=== PATIENT | female | born 1935 | race Caucasian/White ===

== ENCOUNTER → 2024-01-08 13:54 | Outpatient (REF) | payer OTHER, SELFPAY | LOC: RAD 13:54 | PROVIDERS: ATTENDING PHYSICIAN Internal Medicine; FAMILY PHYSICIAN Internal Medicine | DX: M81.0 Age-related osteoporosis without current pathological fracture (principal) | CPT/HCPCS: 77080 ==

== ENCOUNTER → 2024-02-06 07:53 | Outpatient (REF) | payer OTHER, SELFPAY | LOC: RAD 07:53 | PROVIDERS: ATTENDING PHYSICIAN Nurse Practitioner Family | DX: R11.0 Nausea (principal); R68.81 Early satiety; R63.4 Abnormal weight loss; R14.2 Eructation; K31.4 Gastric diverticulum | CPT/HCPCS: 78264; A9541 ==

== ENCOUNTER → 2024-02-13 09:59 | Outpatient (REF) | payer OTHER, SELFPAY | LOC: RST 09:59 | PROVIDERS: ATTENDING PHYSICIAN Nurse Practitioner Family; FAMILY PHYSICIAN Internal Medicine | DX: R13.10 Dysphagia, unspecified (principal) | CPT/HCPCS: 74230; 92611 ==

== ENCOUNTER 2024-09-29 18:15 | Emergency (ER) | payer OTHER, SELFPAY ==
[2024-09-29 18:19] VITALS: BP 213/116
--- NOTE | 2024-09-29 19:07 | ED.MUSCINJ ---
HPI-Injury
General
Chief Complaint: Fall
Source: patient and family (Daughter at bedside)
Exam Limitations: none
Time Seen by Provider: 09/29/24 18:52
Nursing documentation reviewed up to this point in time: agreed with
History of Present Illness-Injury
Initial Injury comments:
88-year-old female on chronic prednisone for temporal arteritis states she was in her kitchen stepping over a 10 inch high board that is used to keep the puppy in the kitchen when her toe caught on the board and she fell forward striking her right
day on the board causing a skin tear. She had a tetanus shot about 3 years ago. She was able to get up and walk, denies pain in the leg, denies hitting her head or any other injury.
Past History
Past History
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
ED Past Surgical History: Cholecystectomy and Urological
Social History
Tobacco: Non-smoker
Alcohol: None
Living: with family
Employment: Retired
Family History
Family History: Other (Temporal arteritis)
Review of Systems
Review of Systems
Allergies reviewed?: Yes
All Other Systems: ROS reviewed and negative except as documented in HPI and ROS
Respiratory: Denies trouble breathing
Cardiac: Denies chest pain
ABD/GI: Denies abdominal pain
Musculoskeletal: Reports no symptoms
Skin: Reports other (Skin tear/laceration right lower extremity)
Neurological: Reports no symptoms
Skin Exam
Laceration
Right Lower Leg:
Length in cm: 16
Orientation: vertical (inverted 'V' shape)
Type of Laceration: simple
Any active bleeding?: low grade venous oozing
Distal skin color and temperature: normal-warm & good color
Normal distal neurovascular exam: Yes
Range of motion: full
Phy Exam
Physical Exam
Physical Exam:
GENERAL: No acute distress. A&Ox3.
CONSTITUTIONAL: Afebrile.
EYES: Clear, conjunctivae normal
Neck: Supple
ENMT: moist mucus membranes, Pharynx nl
RESPIRATORY: Regular respirations, nonlabored, lungs clear.
CARDIOVASCULAR: Regular rate and rhythm, no murmurs, no rubs.
GI: Soft, nontender, normal BS
MUSCULOSKELETAL: No spinal bony tenderness. Moving all extremities well with no pain. Ambulates steadily. No edema. Moves with ease. Well perfused.
SKIN: Warm, dry, pink
PSYCH: Normal mood and affect. Well kept, interactive and appropriate
NEUROLOGIC: Awake, alert and oriented. No focal neurological deficits
Injury Course
Orders/Labs/Results
Orders:
Orders
09/29/24 19:06
Lidocaine/Epinephrine/Tetracai [Let Topical Anesthetic Gel] 6 ml TOPICAL NOW STA
Procedures
Laceration Closure
Right Lower Leg:
Status of Wound: clean
Description of Wound Edges: sharp
Preparation: cleaned with saline
Anesthesia: Topical-LET
Revision/Debridement: routine- no revision
Wound exploration: explored to base- no FB
Type of Closure: Dermabond-skin glue (reinforced with skin adhesive and steri strips, non stick and gauze dressing then debbi wrap applied)
MDM/Problems Addressed
MDM/Problems Addressed:
88-year-old female on chronic prednisone for temporal arteritis states she was in her kitchen stepping over a 10 inch high board that is used to keep the puppy in the kitchen when her toe caught on the board and she fell forward striking her right
day on the board causing a skin tear. She had a tetanus shot about 3 years ago. She was able to get up and walk, denies pain in the leg, denies hitting her head or any other injury.
Wound edges well approximated with wound glue, skin adhesive and steristrips applied, then dressing.
BP 146/101 pt states she does not have HTN she thinks it due to pain
*Critical Care Note
Total Time (30-74mins, 75-104mins- exclusive of procedures): Not Applicable
ED Attending Note
-
Portions of this chart may have been created with voice recognition software.� Occasional wrong word or��sound alike� substitutions may have occurred due to the inherent limitations of voice recognition software.
Discharge Plan
Departure
Patient Disposition: Home (Routine Discharge)
Date of Disposition: 09/29/24
Time of Disposition: 20:24
Patient with high blood pressure during this ER visit?: Yes
Condition: Good
Discharge Problem:
Fall from slip, trip, or stumble, Laceration of right lower leg
Instructions: Laceration Repair With Glue (DC)
Prescriptions:
No Action
acetaminophen [Tylenol] 325 mg Tablet
650 mg PO Q6HPRN PRN (Reason: HIP PAIN)
meclizine 12.5 mg Tablet
12.5 mg PO TIDPRN PRN (Reason: VERIGO)
meloxicam 7.5 mg Tablet
15 mg PO DAILY
lovastatin 20 mg Tablet
40 mg PO DAILY
vitamin A-vitamin C-vit E-min Tablet
1 tab PO DAILY
vit C-vit E-Se-ginkgo biloba 60-30-70-40 km-vkef-bvy-mg Tablet
1 tab PO DAILY
krill wwa-zxlpl-9-dha-epa 150-450 mg Capsule,Delayed Release(Dr/Ec)
1 cap PO DAILY
prednisone 10 mg tablet
10 mg PO DAILY Qty: 150 1RF
Rx Instructions:
take 50mg (5 tabs) daily
ondansetron 4 mg tablet,disintegrating
4 mg PO Q8H PRN (Reason: nausea and vomiting) Qty: 30 0RF
pantoprazole [Protonix] 40 mg tablet,delayed release (DR/EC)
40 mg PO DAILY Qty: 30 1RF
Referrals:
Your, Doctor [Other] - As needed
UNKNOWN - PT DOES,NOT KNOW [Unknown Provider] -
Activity Restrictions/Additional Instructions:
As we discussed, leave the dressing on until 10/06. REST and do not do any lengthy walking, or activity
Then remove the dressing, everything except the steri strips.
You may shower, allowing water to run over the area. Then pat the strips dry, air dry or blow dry them and replace a dressing to cover them.
Do this for the next week. After 2 weeks you can leave everything off.
Signs of infection are increasing pain, redness, fever, pus drainage, if any of these occur see your doctor or return here immediately for recheck.
Interventions
Interventions:
*Risk Screen - Suicide Last Done: 09/29/24 20:56
*General Assessment Last Done: 09/29/24 20:56
*Neglect/Abuse Screening Last Done: 09/29/24 20:56
*Nursing Disposition Last Done: 09/29/24 20:56
ED-Musculoskeletal Assessment Last Done: 09/29/24 18:49
ED- Neurological Assessment Last Done: 09/29/24 18:49
ED-Skin Assessment Last Done: 09/29/24 18:49
Discharge Date and Time
Discharge Date/Time: 09/29/24 20:58
Print Language: SAMI
[2024-09-29] MEDS: LET TOPICAL ANESTHETIC GEL 6 ML TOPICAL (19:29)
[2024-09-29 20:29] VITALS: BP 146/101
== END 2024-09-29 20:58 | disposition home or self-care (01) ==
LOC: EMR 18:15
PROVIDERS: EMERGENCY PHYSICIAN Emergency Medicine; FAMILY PHYSICIAN Nurse Practitioner Family
DX: S81.811A Laceration without foreign body, right lower leg, initial encounter (principal); W01.198A Fall on same level from slipping, tripping and stumbling with subsequent striking against other object, initial encounter; R03.0 Elevated blood-pressure reading, without diagnosis of hypertension
CPT/HCPCS: 99282; 12005

== ENCOUNTER 2024-12-20 13:57 | Inpatient (IN) | payer OTHER, SELFPAY ==
[2024-12-20] VITALS (12 sets, daily range): BP systolic 94–160; BP diastolic 43–84; BMI 19.7; BMI 18.9
[2024-12-20] MEDS: ZOFRAN 4 MG IV ×2 (08:08→14:44)
[2024-12-20] MEDS: NSS 1000 IV (08:08)
--- NOTE | 2024-12-20 08:18 | ED.GENMED ---
History of Present Illness
General
Chief Complaint: Abdominal Pain
Source: patient
Exam Limitations: none
Time Seen by Provider: 12/20/24 07:35
Nursing documentation reviewed up to this point in time: agreed with
History of Present Illness
History of Present Illness:
Patient presents to ED secondary to 1 week history of intermittent cough, shortness of breath, decreased appetite, along with intermittent vomiting episodes when she tries to eat. Denies diarrhea. Denies headache. Denies dizziness. Patient
reports generalized weakness. Denies rash. Denies sore throat. Denies back pain. Denies leg pain or swelling. Denies sick contact. Denies recent travel.
Past History
Past History
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
ED Past Surgical History: Cholecystectomy and Urological
Social History
Tobacco: Non-smoker
Alcohol: None
Living: with family
Employment: Retired
Family History
Family History: Other (Temporal arteritis)
Review of Systems
Review of Systems
Allergies reviewed?: Yes
All Other Systems: ROS reviewed and negative except as documented in HPI and ROS
Constitutional: Reports no symptoms
EENT: Reports no symptoms
Respiratory: Reports no symptoms
Cardiac: Reports no symptoms
ABD/GI: Reports no symptoms
Musculoskeletal: Reports no symptoms
Skin: Reports no symptoms
Neurological: Reports no symptoms
Phy Exam
Physical Exam
Physical Exam:
Physical Exam
General: moderate distress, acutely ill. afebrile.
Head: nc/at. eomi
Neck: supple. no meningeal signs.
Heart: s1/s2 regular rate and rhythm, no murmur. equal radial pulses.
Lungs: mild respiratory distress. diminished breath sounds bilaterally
Abdomen: normal bowel sounds. not tender.
Neuro: alert and oriented x 3. no focal neurological deficits
Skin: no rash
Psychiatric: well kept. interactive and cooperative
Extremities: no edema. no calf tenderness.
Course
Orders/Labs/Results
Orders:
Orders
12/20/24 Breakfast
Clear Liquid
At Your Request: Full Participation
12/20/24 07:52
Electrocardiogram (*1) Urgent
Reason for Study: Fatigue / Weakness
EKG- Treatment ONCE
0.9% Sodium Chloride 1000 ml [Nss] 1,000 ml IV BOLUS
Ondansetron Injectable [Zofran] 4 mg IV NOW STA
12/20/24 08:03
COVID-19 Antigen Urgent
Source: Nasal Swab
Complete Blood Count/With Diff Urgent
Comprehensive Metabolic Panel Urgent
Lactic Acid Q4H
Comment: CANCEL 2nd LACTIC ACID IF 1st LACTIC ACID IS LESS THAN 2
Magnesium Urgent
Blood Culture Q30M
ROGERS Source: Blood/Venous
Specimen Description:
Influenza A+B Rapid Molecular Urgent
ROGERS Source: Nasal Swab
Specimen Description:
Respiratory Syncytial Virus Urgent
ROGERS Source: Nasal Swab
Specimen Description:
Date Specimen was Collected: 12/20/24
Time Specimen was Collected: 07:54
12/20/24 08:37
Arterial Blood Gas Urgent
%Oxygen/Room Air: 88%
12/20/24 09:21
CR Chest - 2 Views Urgent
Comment:
Reason For Exam: cough/sob, influenza positive
12/20/24 09:47
Guaifenesin/Codeine Solution [Robitussin AC] 10 ml PO NOW STA
Pantoprazole [Protonix IV] 40 mg IV NOW STA
12/20/24 09:48
Albuterol Nebs [Ventolin Nebules] 2.5 mg INH R NOW STA
12/20/24 09:50
Blood Culture Q30M
ROGERS Source: Blood/Venous
Specimen Description:
12/20/24 13:17
Benzocaine/Menthol [Anesthetic Lozenge] 1 lozenge PO Q4HPRN PRN
12/20/24 13:36
Admit/Transfer Patient As Directed
Co-Sign Provider:
Level of Care: Inpatient admission
Assign to:: Telemetry
Physician / Group: Ese Marquez
Diagnosis: Flu Hypoxia
Reason for Telemetry: Chest Pain syndromes
Date to Stop Telemetry: 12/22/24
Time to Stop Telemetry: 11:00
Reason for Hospitalization: Flu Hypoxia
Expected length of stay greater than two midnights?: Yes
ELOS- Estimated Length of Stay in days: 2
I certify the patient meets the requirements for IP care: Yes
12/20/24 13:37
PRN Pain Medication Management As Directed
May give lesser potent ordered pain med per pt: Yes
preference::
Protocol:: Medication orders for pain may be administered in a
manner that supports deferring to patient preference
when the pt is:
- Requesting an ordered lesser potent pain medication.
Least to most potent pain medications are defined
as: acetaminophen < NSAID < tramadol < opioids
(morphine, oxycodone, hydromorphone).
- Requesting a lesser dose of the same medication IF
ORDERED.
- Requesting a less intrusive route of administration
if both routes are prescribed by the provider (PO <
IV).
12/20/24 13:40
Code Status As Directed
Resuscitation Status: Full Code
12/20/24 14:26
Acetaminophen [Tylenol] 650 mg PO Q4HPRN PRN
Ondansetron Injectable [Zofran] 4 mg IV Q6HPRN PRN
12/20/24 14:29
Troponin I Routine
12/20/24 15:42
Lactated Ringers [Lr] 1,000 ml IV 80 mls/hr
12/20/24 16:05
Bisacodyl [Dulcolax] 10 mg RECTAL [id number] PRN
Docusate W/Senna [Senokot-S] 1 tablet PO BIDPRN PRN
Guaifenesin Solution [Robitussin] 200 mg PO Q4HPRN PRN
Meclizine [Antivert] 12.5 mg PO TIDPRN PRN
Polyethylene Glycol Powder [Miralax] 17 grams PO DAILYPRN PRN
12/20/24 16:05
Activity As Directed
Activity Level: With Assistance
Precautions As Directed
Type of Precautions: Other
Comment: fall precautions
Vital Signs As Directed
Frequency: Per unit guidelines
O2 Therapy [RESP] Routine
Titrate/Wean O2 to maintain O2 sat greater than (%): 92
Ot Eval And Treat Routine
Pt Eval And Treat Routine
Activity Level: With Assistance
DX Deep Vein Thrombosis Video Routine
12/20/24 18:00
Atorvastatin [Lipitor] 10 mg PO QPM
Enoxaparin Sodium [Lovenox] 40 mg SC QPM
Nystatin Suspension [Mycostatin Oral Suspension] 5 ml PO QID
12/20/24 20:00
Guaifenesin [Mucinex] 600 mg PO Q12
12/21/24 06:00
EKG [Electrocardiogram (*1)] IN AM
Reason for Study: Abnormal EKG
Basic Metabolic Panel IN AM
Complete Blood Count/No Diff IN AM
Magnesium IN AM
12/21/24 08:00
Multivitamin [Theragran] 1 tablet PO DAILY
Pantoprazole [Protonix] 40 mg PO DAILY
Prednisone [Deltasone] 7 mg PO DAILY
12/22/24 06:00
Basic Metabolic Panel IN AM
Complete Blood Count/No Diff IN AM
Magnesium IN AM
12/22/24 11:00
DC Protocol for Telemetry ONCE
12/23/24 06:00
Basic Metabolic Panel IN AM
Complete Blood Count/No Diff IN AM
Magnesium IN AM
12/24/24 06:00
Basic Metabolic Panel IN AM
Complete Blood Count/No Diff IN AM
Magnesium IN AM
12/25/24 06:00
Basic Metabolic Panel IN AM
Complete Blood Count/No Diff IN AM
Magnesium IN AM
12/26/24 06:00
Basic Metabolic Panel IN AM
Complete Blood Count/No Diff IN AM
Magnesium IN AM
12/27/24 06:00
Basic Metabolic Panel IN AM
Complete Blood Count/No Diff IN AM
Magnesium IN AM
Abnormal Lab Results
12/20/24 12/20/24
08:03 08:37
MCHC 32.5 L g/dL
(33.0-37.0)
RDW 15.0 H %
(11.5-14.5)
Absolute Lymphs (auto) 0.8 L 10^3/uL
(1.2-3.4)
Lymphocytes % 15.0 L %
(20.5-51.1)
Monocytes % 10.3 H %
(1.7-9.3)
pCO2 37 H mmHg
(32-35)
pO2 65 L mmHg
(83-108)
BUN 26 H mg/dl
(7-17)
Glucose 101 H mg/dl
(70-99)
Calcium 7.9 L mg/dl
(8.4-10.2)
AST 50 H U/L
(14-36)
ALT 50 H U/L
(0-35)
Total Protein 5.8 L g/dl
(6.3-8.2)
12/20/24 08:03
12/20/24 08:03
Vital Signs
Initial and Last Documented VS:
Initial Vital Signs
Temp Pulse Resp BP Pulse Ox
98.2 F 70 24 140/70 90
12/20/24 06:34 12/20/24 06:34 12/20/24 06:34 12/20/24 06:34 12/20/24 06:34
Last Documented Vital Signs
Temp Pulse Resp BP Pulse Ox
98.7 F 78 20 160/66 92
12/20/24 19:00 12/20/24 19:00 12/20/24 19:00 12/20/24 19:00 12/20/24 23:33
MDM/Problems Addressed
MDM/Problems Addressed:
History and exam consistent with symptoms secondary to influenza. Mild hypoxia improved with supplemental oxygen. Chest x-ray without any acute findings. Patient also with clinical dehydration, likely due to poor oral intake. Patient will
require symptomatic treatment, along with continual oxygen support.
*EKG
Interpreted by ED Provider?: Yes
EKG Intrepretation Date: 12/20/24
Heart Rate: 82
Rate: normal
Rhythm: sinus
[place]: normal axis
Interval: normal interval
*Critical Care Note
Total Time (30-74mins, 75-104mins- exclusive of procedures): Not Applicable
ED Attending Note
-
Portions of this chart may have been created with voice recognition software.� Occasional wrong word or��sound alike� substitutions may have occurred due to the inherent limitations of voice recognition software.
Discharge Plan
Departure
Patient Disposition: Admit
Date of Disposition: 12/20/24
Time of Disposition: 09:53
Admit to: Telemetry
Presentation/result/management discussed w/ accepting MD/DO: Hospitalist
Discharge Problem:
Influenza, Hypoxia, Dehydration
Interventions
Interventions:
*Risk Screen - Suicide Last Done: 12/20/24 17:35
*General Assessment Last Done: 12/20/24 08:16
*Neglect/Abuse Screening Last Done: 12/20/24 06:41
*ED COVID-19 Vaccine History Last Done: 12/20/24 17:35
*Nursing Disposition Last Done: 12/20/24 16:32
LB-Dbkdmr-Vgyeclektb Assessment Last Done: 12/20/24 08:21
Discharge Date and Time
Discharge Date/Time: 12/20/24 16:42
[2024-12-20 08:35] LABS: % Basophils 0.2 % (0-2); % Immature Granulocytes 0.2 % (0-0.5); % Monocytes 10.3 % (1.7-9.3); % Neutrophils 74.3 % (42.2-75.2); Absolute Lymphocytes 0.8 10^3/uL (1.2-3.4); Absolute Monocytes 0.5 10^3/uL (0.1-0.6); Absolute Neutrophils 3.8 10^3/uL (1.4-6.5); Hematocrit 41.8 % (37.0-47.0); Hemoglobin 13.6 g/dL (12.0-16.0); Mean Corp Hgb Conc. 32.5 g/dL (33.0-37.0); Mean Corpuscular Hgb 28.7 pg (27.0-31.0); Mean Corpuscular Volume 88.2 fL (81.0-99.0); Mean Platelet Volume 9.5 fL (7.4-10.4); Nucleated Red Blood Cells % 0 %; Platelet Count 242 10^3/uL (130-400); Red Blood Cell Count 4.74 10^6/uL (4.20-5.40); White Blood Cell Count 5.1 10^3/uL (4.8-10.8)
[2024-12-20 08:40] LABS: Lactic Acid 0.9 mmol/L (0.7-2.0)
[2024-12-20 08:41] LABS: ALT (SGPT) 50 U/L (0-35); AST (SGOT) 50 U/L (14-36); Albumin 3.6 g/dl (3.5-5.0); Alkaline Phosphatase 59 U/L (38-126); Blood Urea Nitrogen 26 mg/dl (7-17); Calcium 7.9 mg/dl (8.4-10.2); Carbon Dioxide 22 mmol/L (22-30); Chloride 102 mmol/L (98-107); Estimated Creatinine Clearance 41 ml/min; Glucose 101 mg/dl (70-99); Magnesium 2.1 mg/dl (1.6-2.3); Potassium 4.1 mmol/L (3.5-5.1); Sodium 137 mmol/L (135-145); Total Bilirubin 0.4 mg/dl (0.2-1.3); Total Protein 5.8 g/dl (6.3-8.2); eGFR > 60.00
[2024-12-20 08:47] LABS: COVID-19 Antigen Negative (Negative)
[2024-12-20 08:56] LABS: B.E. -2.8 mmol/L; HCO3 21.9 mmol/L (21-28); O2 Saturation % 94.5 % (94-98); PCO2 37 mmHg (32-35); PO2 65 mmHg (83-108); pH 7.38 (7.35-7.45)
[2024-12-20] MEDS: PROTONIX IV 40 MG IV (09:54)
[2024-12-20] MEDS: VENTOLIN NEBULES 2.5 MG INH (09:54)
[2024-12-20] MEDS: ROBITUSSIN AC 10 ML PO (09:54)
--- NOTE | 2024-12-20 10:34 | HPS.HSE ---
Family Physician
-
Family Physician: Elfego Jones
Chief Complaint
-
Chest pain
History of Present Illness
89F vision impairment d/t BEST dz (no longer driving- follows with [facility]) hx Temporal Arteritis 2021 (on prednisone taper down to 7 mg, follows with organ pipe voicer Dr Eric Calderon) Cholecystectomy Complete Hysterectomy GERD HLD p/w 1 week
coughing shortness of breath nausea vomiting decreased oral intake. Patient, who lives with daughter precision farming specialist, was prompted to come in for evaluation when she developed chest pain overnight since resolved. Flu positive. CXR noted no acute abn's.
Hypoxic on room air to 87%, patient required 2L nasal cannula supplementation to correct desaturation. Labs otherwise unremarkable. No fever or leukocytosis.
Medical History
Past Medical History
Past Medical History: Reports Other (as above)
Past Surgical History: Reports Other (as above)
Social History
Tobacco: Non-smoker
Alcohol: Occasional
Drug: None
Living: With Family
Employment: Retired
Family History
Family History: Not pertinent (reviewed)
Allergies / Home Medications
Allergies reflects when Allergies were last updated in [facility].
Home Medications with original date entered in [facility]
Allergy/Medication List:
Allergies
Allergy/AdvReac Type Severity Reaction Status Date / Time
No Known Allergies Allergy Verified 12/20/24 06:43
Home Medications
lovastatin 20 mg tablet 20 mg PO DAILY 11/28/22
meclizine 12.5 mg tablet 12.5 mg PO TIDPRN PRN VERIGO 11/28/22
pantoprazole 40 mg tablet,delayed release (Protonix) 40 mg PO DAILY #30 tabs 11/28/22
prednisone 1 mg tablet 7 mg PO DAILY 12/20/24
therapeutic multivitamin 1 tab PO DAILY 12/20/24
Review of Systems
-
A 12 point ROS was completed and negative except as noted: Yes
Constitutional: Reports Other (as below)
Physical Exam
Vital Signs
Vital Signs
Temp Pulse Resp BP Pulse Ox
98.2 F 73 18 107/50 90
12/20/24 09:01 12/20/24 10:00 12/20/24 10:00 12/20/24 10:00 12/20/24 10:00
Physical Exam
General: Other (as below)
Laboratory Results
-
12/20/24 08:03
12/20/24 08:03
Laboratory Results
pH 7.38 (7.35-7.45) 12/20/24 08:37
pCO2 37 mmHg (32-35) H 12/20/24 08:37
pO2 65 mmHg (83-108) L 12/20/24 08:37
HCO3 21.9 mmol/L (21-28) 12/20/24 08:37
Lactic Acid 0.9 mmol/L (0.7-2.0) 12/20/24 08:03
Total Bilirubin 0.4 mg/dl (0.2-1.3) 12/20/24 08:03
AST 50 U/L (14-36) H 12/20/24 08:03
ALT 50 U/L (0-35) H 12/20/24 08:03
Alkaline Phosphatase 59 U/L (38-126) 12/20/24 08:03
Impression/Plan
-
ROS
General: Reports fever chills denies night sweats unexpected weight loss
Neuro: Denies seizure shaking loss of consciousness dizziness vertigo
Psych: denies depression hallucinations confusion manic episodes
Endocrine: Denies polyuria polydipsia polyphagia
HEENT: reports chronic vision impairment sore throat denies epistaxis
Pulmonary: reports cough exertional dyspnea denies hemoptysis
Cardiovascular: reports chest pain since resolved denies palpitations leg swelling
Hematology: denies signs symptoms of anemia easy bruising/bleeding
Gastrointestinal: denies nausea vomiting diarrhea constipation hematemesis hematochezia melena
Genito-Urinary: denies retention incontinence dysuria
Musculoskeletal: denies joint pain weakness
Dermatology: denies rash laceration bruising
Physical Exam
General: No pallor, cyanosis, or jaundice.
HEENT: Oral thrush+ Normocephalic atraumatic Anicteric Sclera
NECK: Supple. No JVD Carotid Bruits
RESPIRATORY: Lungs clear to auscultation. No crackles wheezes stridor
CVS: S1, S2 normal. RRR. No murmur, rub or gallop.
ABDOMEN: Soft, non-tender. No distension. BS+/normal.
EXTREMITIES: No peripheral cyanosis or edema.
HEAD ATHLETIC TRAINER: AOx3
IMPRESSION:
89F vision impairment d/t BEST dz (no longer driving- follows with [facility]) hx Temporal Arteritis 2021 (on prednisone taper down to 7 mg, follows with organ pipe voicer Dr Eric Calderon) Cholecystectomy Complete Hysterectomy GERD HLD p/w 1 week
coughing shortness of breath nausea vomiting decreased oral intake. Patient, who lives with daughter precision farming specialist, was prompted to come in for evaluation when she developed chest pain overnight since resolved. Flu positive. CXR noted no acute abn's.
Hypoxic on room air to 87%, patient required 2L nasal cannula supplementation to correct desaturation. Labs otherwise unremarkable. No fever or leukocytosis. AOx3 at capacity to make her own medical decisions.
PLAN:
#Flu 1 week symptoms
#Hypoxia 2/2 Flu
#nausea vomiting
oxygen supplementation prn
goal sat 92%, wean as tolerated
droplet precautions
Tamiflu renally dosed, (75 mg once then 30 mg BID- 5 day treatment 12/20/24-12/24/24)
mucinex, robitussin prn
Clear liquid diet for now, ok to advance as tolerated
zofran prn
#Reports of Chest Pain since resolved
possibly due to nausea vomiting vs hypoxia/coughing
check troponin
abnormal ekg, repeat in AM
monitor on Telemetry
#oral thrush
nystatin swish 7-10 days
#Hx Temporal Arteritis
cont home prednisone 7 mg daily
#GERD
cont home protonix
#HLD
cont home statin or equivalent
#BEST dz vision impairment
PT/OT eval requested
Fall Precautions
dvt ppx Lovenox
Full Code as per patient
I spent a total of 77 minutes with the patient or on the floor. More than 50% of this time involved counseling and coordination of care.
--- NOTE | 2024-12-20 12:54 | PHANOTE ---
med rec note- patient does not know her medication, tried to call daughter on file but her voice mail has not been promptly to sent up and does not take voice message.
[2024-12-20] MEDS: TYLENOL 650 MG PO ×2 (14:43→23:00)
[2024-12-20] MEDS: TAMIFLU 75 MG PO (14:44)
[2024-12-20] MEDS: ANESTHETIC LOZENGE 1 LOZENGE PO (14:44)
[2024-12-20 14:59] LABS: Troponin I 0.034 ng/ml
[2024-12-20] MEDS: LR 1000 IV (15:47)
[2024-12-20] MEDS: MYCOSTATIN ORAL SUSPENSION 5 ML PO ×2 (17:27→21:45)
[2024-12-20] MEDS: LOVENOX 40 MG SC (17:27)
[2024-12-20] MEDS: LIPITOR 10 MG PO (17:27)
--- NOTE | 2024-12-20 19:09 | PTCARENOTE ---
pt receive from ED and pulled over to bed by this RN. LR running in L AC. assigned to telemetry: NSR. AAOx3 but pt states they are very tired and worn out. VSS, O2 97% on 3L nasal cannula. Admission assessment and questions completed. Pt stated she
hadn't peed since arriving to hospital. bladder scan 180cc. Call de leon within reach, will continue to monitor.
[2024-12-20 20:49] LABS: Troponin I 0.032 ng/ml
[2024-12-20] MEDS: MUCINEX 600 MG PO (21:45)
[2024-12-21 03:00] VITALS: BP 165/75
[2024-12-21] MEDS: LR 1000 IV (04:15)
[2024-12-21] MEDS: ROBITUSSIN 200 MG PO (05:32)
[2024-12-21 06:24] LABS: Hematocrit 38.6 % (37.0-47.0); Hemoglobin 12.2 g/dL (12.0-16.0); Mean Corp Hgb Conc. 31.6 g/dL (33.0-37.0); Mean Corpuscular Volume 91.7 fL (81.0-99.0); Mean Platelet Volume 9.9 fL (7.4-10.4); Platelet Count 221 10^3/uL (130-400); Red Blood Cell Count 4.21 10^6/uL (4.20-5.40); Red Cell Dist. Width 15.4 % (11.5-14.5); White Blood Cell Count 6.6 10^3/uL (4.8-10.8)
[2024-12-21 06:53] LABS: Blood Urea Nitrogen 26 mg/dl (7-17); Calcium 7.8 mg/dl (8.4-10.2); Carbon Dioxide 24 mmol/L (22-30); Chloride 107 mmol/L (98-107); Estimated Creatinine Clearance 35 ml/min; Glucose 90 mg/dl (70-99); Magnesium 2.1 mg/dl (1.6-2.3); Potassium 4.1 mmol/L (3.5-5.1); Sodium 138 mmol/L (135-145); eGFR > 60.00
[2024-12-21 07:30] VITALS: BP 193/95
[2024-12-21] MEDS: DELTASONE 7 MG PO (09:05)
[2024-12-21] MEDS: THERAGRAN 1 TABLET PO (09:05)
[2024-12-21] MEDS: TAMIFLU 30 MG PO ×2 (09:06→20:30)
[2024-12-21] MEDS: TYLENOL 650 MG PO (09:06)
[2024-12-21] MEDS: MYCOSTATIN ORAL SUSPENSION 5 ML PO ×4 (09:06→21:33)
[2024-12-21] MEDS: PROTONIX 40 MG PO (09:06)
[2024-12-21] MEDS: MUCINEX 600 MG PO ×2 (09:06→20:30)
[2024-12-21 11:20] VITALS: BP 152/69
--- NOTE | 2024-12-21 12:27 | W.PN.HOSP.TC ---
Today's Communication/Plan
-
wean o2 as tolerated
pt/ot
advanced diet
Assessment / Plan
Assessment / Plan
Physical Exam
General: No pallor, cyanosis, or jaundice.
HEENT: Oral thrush+ Normocephalic atraumatic Anicteric Sclera
NECK: Supple. No JVD Carotid Bruits
RESPIRATORY: rhonci, oxygen 4L
CVS: S1, S2 normal. RRR. No murmur, rub or gallop.
ABDOMEN: Soft, non-tender. No distension. BS+/normal.
EXTREMITIES: No peripheral cyanosis or edema.
SPONGE PRESS OPERATOR: AOx3
IMPRESSION:
89F vision impairment d/t BEST dz (no longer driving- follows with [facility]) hx Temporal Arteritis 2021 (on prednisone taper down to 7 mg, follows with websphere consultant Dr Eric Calderon) Cholecystectomy Complete Hysterectomy GERD HLD p/w 1 week
coughing shortness of breath nausea vomiting decreased oral intake. Patient, who lives with daughter meal cooker, was prompted to come in for evaluation when she developed chest pain overnight since resolved. Flu positive. CXR noted no acute abn's.
Hypoxic on room air to 87%, patient required 2L nasal cannula supplementation to correct desaturation. Labs otherwise unremarkable. No fever or leukocytosis. AOx3 at capacity to make her own medical decisions.
PLAN:
# Acute hypoxic respiratory insufficiency
# Bronchitis likely secondary to influenza
#nausea vomiting
oxygen supplementation prn
goal sat 92%, wean as tolerated
droplet precautions
Tamiflu renally dosed, (75 mg once then 30 mg BID- 5 day treatment 12/20/24-12/24/24)
mucinex, robitussin prn
Advanced diet
tessalon pearle, albuterol prn
zofran prn
#Reports of Chest Pain since resolved
possibly due to nausea vomiting vs hypoxia/coughing
check troponin neg x 2
monitor on Telemetry
#oral thrush
nystatin swish 7-10 days
#Hx Temporal Arteritis
cont home prednisone 7 mg daily
#GERD
cont home protonix
#HLD
cont home statin or equivalent
#BEST dz vision impairment
PT/OT eval requested
Fall Precautions
dvt ppx Lovenox
Full Code as per patient
Anticipated Discharge: > 48 hours
Subjective/Interval History
-
Date of Service: December 21, 2024
States of dry cough
on oxygen-requirement uptrended
Objective Data
-
Labs:
Laboratory Results
12/21/24
05:48
WBC 6.6
Hgb 12.2
Hct 38.6
Plt Count 221
Sodium 138
Potassium 4.1
Chloride 107
Carbon Dioxide 24
BUN 26 H
Creatinine 0.9
Glucose 90
Calcium 7.8 L
Vital Signs:
Vital Signs
Temp Pulse Resp BP Pulse Ox
98.5 F 70 16 152/69 96
12/21/24 11:20 12/21/24 11:20 12/21/24 11:20 12/21/24 11:20 12/21/24 11:20
I&O
12/20/24 12/21/24 12/22/24
06:59 06:59 06:59
Intake Total 960 / 960
Balance 960 / 960
Data Reviewed
-
Total Time Spent with Patient (in minutes): 55
[2024-12-21] MEDS: ProAIR HFA INHALER INH ×2 (13:05→20:00)
[2024-12-21] MEDS: ZOFRAN 4 MG IV (13:29)
[2024-12-21 15:01] VITALS: BP 154/75
[2024-12-21 15:48] VITALS: BMI 18.9
[2024-12-21] MEDS: LOVENOX 40 MG SC (17:51)
[2024-12-21] MEDS: LIPITOR 10 MG PO (17:51)
[2024-12-21 19:20] VITALS: BP 156/72
[2024-12-21 21:26] VITALS: BMI 18.3
[2024-12-21 23:30] VITALS: BP 159/60
[2024-12-22 03:12] VITALS: BP 167/76
[2024-12-22 06:39] LABS: Hematocrit 36.9 % (37.0-47.0); Hemoglobin 11.8 g/dL (12.0-16.0); Mean Corpuscular Hgb 29.1 pg (27.0-31.0); Mean Corpuscular Volume 90.9 fL (81.0-99.0); Mean Platelet Volume 9.9 fL (7.4-10.4); Platelet Count 207 10^3/uL (130-400); Red Blood Cell Count 4.06 10^6/uL (4.20-5.40); White Blood Cell Count 5.1 10^3/uL (4.8-10.8)
[2024-12-22 06:59] LABS: Blood Urea Nitrogen 19 mg/dl (7-17); Carbon Dioxide 31 mmol/L (22-30); Chloride 105 mmol/L (98-107); Estimated Creatinine Clearance 49 ml/min; Glucose 93 mg/dl (70-99); Magnesium 2.3 mg/dl (1.6-2.3); Potassium 3.8 mmol/L (3.5-5.1); Sodium 141 mmol/L (135-145); eGFR > 60.00
[2024-12-22 07:12] VITALS: BP 147/74
[2024-12-22] MEDS: ProAIR HFA INHALER 2 PUFF INH ×3 (07:51→20:35)
[2024-12-22] MEDS: DELTASONE 7 MG PO (08:03)
[2024-12-22] MEDS: MUCINEX 600 MG PO ×2 (08:04→20:55)
[2024-12-22] MEDS: PROTONIX 40 MG PO (08:05)
[2024-12-22] MEDS: THERAGRAN 1 TABLET PO (08:05)
[2024-12-22] MEDS: TAMIFLU 30 MG PO ×2 (08:14→20:54)
[2024-12-22] MEDS: MYCOSTATIN ORAL SUSPENSION 5 ML PO ×4 (08:15→21:01)
--- NOTE | 2024-12-22 09:45 | CM ---
CM met with Tiara who lives in split level home with her daughter. Pt reports being independent with ADLs; no DME in the home. Pt is legally blind, her daughter cooks and pt will clean up. Pt's daughter assists with all other IADLs as needed.
Plan: Discharge to [facility] for home health and home O2 needs.
--- NOTE | 2024-12-22 10:56 | PN.CDI ---
CDI
- -
CDI:
Physician Documentation Request
Admit Date: 12/20/24 13:57
Dear Doctor Harpreet,
Clinical Indicators:
Height: 5 ft 8 inch
Weight: 110 (12/20)
BMI: 18.9
If possible, please provide an associated diagnosis related to the abnormal BMI:
BMI < or = to 19
Underweight
Weight Loss
Cachectic
Anorexia
- BMI is not significant
- Other
Use of terms such as suspected, likely, concern for, or probable (associated with a specific diagnosis that is being evaluated, monitored, or treated as if it exists) are acceptable and can be coded in the inpatient setting, when documented at the
time of discharge.
Thank you,
Kimberly Prescott RN, BSN
CDI Specialist
tiger text
Please use your independent medical judgment in providing your response.
--- NOTE | 2024-12-22 11:57 | W.PN.HOSP.TC ---
Today's Communication/Plan
-
wean o2
tamiflu
vn
start dispo
oob
Assessment / Plan
Assessment / Plan
Physical Exam
General: No pallor, cyanosis, or jaundice.
HEENT: Oral thrush+ Normocephalic atraumatic Anicteric Sclera
NECK: Supple. No JVD Carotid Bruits
RESPIRATORY: rhonci improving, oxygen 2L
CVS: S1, S2 normal. RRR. No murmur, rub or gallop.
ABDOMEN: Soft, non-tender. No distension. BS+/normal.
EXTREMITIES: No peripheral cyanosis or edema.
QC ANALYST: AOx3
IMPRESSION:
89F vision impairment d/t BEST dz (no longer driving- follows with [facility]) hx Temporal Arteritis 2021 (on prednisone taper down to 7 mg, follows with prospecting driller helper Dr Eric Calderon) Cholecystectomy Complete Hysterectomy GERD HLD p/w 1 week
coughing shortness of breath nausea vomiting decreased oral intake. Patient, who lives with daughter car detailer, was prompted to come in for evaluation when she developed chest pain overnight since resolved. Flu positive. CXR noted no acute abn's.
Hypoxic on room air to 87%, patient required 2L nasal cannula supplementation to correct desaturation. Labs otherwise unremarkable. No fever or leukocytosis. AOx3 at capacity to make her own medical decisions.
PLAN:
# Acute hypoxic respiratory insufficiency
# Bronchitis likely secondary to influenza
#nausea vomiting
oxygen supplementation prn
goal sat 92%, wean as tolerated now on 2L.
droplet precautions
Tamiflu renally dosed, (75 mg once then 30 mg BID- 5 day treatment 12/20/24-12/24/24)
mucinex, robitussin prn
Advanced diet
tessalon pearle, albuterol prn
zofran prn
#Reports of Chest Pain since resolved
possibly due to nausea vomiting vs hypoxia/coughing
check troponin neg x 2
monitor on Telemetry-no events
#oral thrush
nystatin swish 7-10 days
#Hx Temporal Arteritis
cont home prednisone 7 mg daily
#GERD
cont home protonix
#HLD
cont home statin or equivalent
#BEST dz vision impairment
Fall Precautions
dvt ppx Lovenox
Full Code as per patient
PT/OT-Home Vn
Anticipated Discharge: Within 24 hours
Subjective/Interval History
-
Date of Service: December 22, 2024
on 2L oxygen
states of dry cough
Objective Data
-
Labs:
Laboratory Results
12/22/24
06:00
WBC 5.1
Hgb 11.8 L
Hct 36.9 L
Plt Count 207
Sodium 141
Potassium 3.8
Chloride 105
Carbon Dioxide 31 H
BUN 19 H
Creatinine 0.7
Glucose 93
Calcium 8.0 L
Vital Signs:
Vital Signs
Temp Pulse Resp BP Pulse Ox
99.1 F 66 14 147/74 99
12/22/24 07:12 12/22/24 07:55 12/22/24 07:55 12/22/24 07:12 12/22/24 07:55
I&O
12/21/24 12/22/24 12/23/24
06:59 06:59 06:59
Intake Total 960 / 960 740 / 740
Balance 960 / 960 740 / 740
[2024-12-22 12:13] VITALS: BP 149/95
[2024-12-22 15:10] VITALS: BP 139/65
[2024-12-22] MEDS: LIPITOR 10 MG PO (17:07)
[2024-12-22] MEDS: LOVENOX 40 MG SC (17:07)
[2024-12-22 19:35] VITALS: BP 166/75
[2024-12-22 23:25] VITALS: BP 169/69
[2024-12-23] MEDS: ANESTHETIC LOZENGE 1 LOZENGE PO (01:36)
[2024-12-23] MEDS: OCEAN, SALINE MIST 2 SPRAYS NASAL (01:38)
[2024-12-23 03:00] VITALS: BP 167/82
[2024-12-23 06:29] LABS: Hematocrit 38.5 % (37.0-47.0); Hemoglobin 12.4 g/dL (12.0-16.0); Mean Corp Hgb Conc. 32.2 g/dL (33.0-37.0); Mean Corpuscular Hgb 28.7 pg (27.0-31.0); Mean Corpuscular Volume 89.1 fL (81.0-99.0); Mean Platelet Volume 10.1 fL (7.4-10.4); Platelet Count 240 10^3/uL (130-400); Red Blood Cell Count 4.32 10^6/uL (4.20-5.40); Red Cell Dist. Width 14.7 % (11.5-14.5); White Blood Cell Count 6.6 10^3/uL (4.8-10.8)
[2024-12-23 06:46] LABS: Blood Urea Nitrogen 18 mg/dl (7-17); Calcium 8.4 mg/dl (8.4-10.2); Carbon Dioxide 29 mmol/L (22-30); Chloride 104 mmol/L (98-107); Estimated Creatinine Clearance 57 ml/min; Glucose 94 mg/dl (70-99); Magnesium 2.1 mg/dl (1.6-2.3); Potassium 3.6 mmol/L (3.5-5.1); Sodium 140 mmol/L (135-145); eGFR > 60.00
[2024-12-23 07:09] VITALS: BP 169/69
[2024-12-23] MEDS: ProAIR HFA INHALER 2 PUFF INH ×2 (08:01→14:32)
[2024-12-23] MEDS: TAMIFLU 30 MG PO (08:08)
[2024-12-23] MEDS: MUCINEX 600 MG PO (08:08)
[2024-12-23] MEDS: THERAGRAN 1 TABLET PO (08:08)
[2024-12-23] MEDS: MYCOSTATIN ORAL SUSPENSION 5 ML PO (08:08)
[2024-12-23] MEDS: DELTASONE 7 MG PO (08:11)
[2024-12-23] MEDS: PROTONIX 40 MG PO (08:21)
--- NOTE | 2024-12-23 10:29 | CM ---
CM reviewed chart, patient seen bedside. CM discussed PT recommendations of VN, patient declining at this time. Patient confirms she is not on home O2. Patient hopeful to go home today. IMM verbally reviewed, provided with copy, placed in chart. CM
will continue to follow for all discharge planning needs.
Plan; home, declining VN, weaning O2
[2024-12-23 11:00] VITALS: BP 133/58
--- NOTE | 2024-12-23 11:59 | W.PN.HOSP.TC ---
Addendum entered and electronically signed by Rajat Mullins MD 12/23/24 12:16:
underweight
Original Note:
Today's Communication/Plan
-
wean o2
monitor BP
start dispo
may require o2 at home
Assessment / Plan
Assessment / Plan
Physical Exam
General: No pallor, cyanosis, or jaundice.
HEENT: Oral thrush+ Normocephalic atraumatic Anicteric Sclera
NECK: Supple. No JVD Carotid Bruits
RESPIRATORY: cta bl, oxygen 1L
CVS: S1, S2 normal. RRR. No murmur, rub or gallop.
ABDOMEN: Soft, non-tender. No distension. BS+/normal.
EXTREMITIES: No peripheral cyanosis or edema.
FRENCH TEACHER: AOx3
IMPRESSION:
89F vision impairment d/t BEST dz (no longer driving- follows with [facility]) hx Temporal Arteritis 2021 (on prednisone taper down to 7 mg, follows with check processor Dr Eric Calderon) Cholecystectomy Complete Hysterectomy GERD HLD p/w 1 week
coughing shortness of breath nausea vomiting decreased oral intake. Patient, who lives with daughter washhouse worker, was prompted to come in for evaluation when she developed chest pain overnight since resolved. Flu positive. CXR noted no acute abn's.
Hypoxic on room air to 87%, patient required 2L nasal cannula supplementation to correct desaturation. Labs otherwise unremarkable. No fever or leukocytosis. AOx3 at capacity to make her own medical decisions.
PLAN:
# Acute hypoxic respiratory insufficiency
# Bronchitis likely secondary to influenza
#nausea vomiting
oxygen supplementation prn
goal sat 92%, wean as tolerated now on 1L.
droplet precautions
Tamiflu renally dosed, (75 mg once then 30 mg BID- 5 day treatment 12/20/24-12/24/24)
mucinex, robitussin prn
Advanced diet
tessalon pearle, albuterol prn
zofran prn
#Reports of Chest Pain since resolved
possibly due to nausea vomiting vs hypoxia/coughing
check troponin neg x 2
monitor on Telemetry-no events
#oral thrush
nystatin swish 7-10 days
#Hx Temporal Arteritis
cont home prednisone 7 mg daily
#GERD
cont home protonix
#HLD
cont home statin or equivalent
#BEST dz vision impairment
Fall Precautions
dvt ppx Lovenox
Full Code as per patient
PT/OT-Home Vn
Anticipated Discharge: Today
Subjective/Interval History
-
Date of Service: December 23, 2024
states feeling better
tolerating diet
no severe cough
in good spirits
Objective Data
-
Labs:
Laboratory Results
12/23/24
05:53
WBC 6.6
Hgb 12.4
Hct 38.5
Plt Count 240
Sodium 140
Potassium 3.6
Chloride 104
Carbon Dioxide 29
BUN 18 H
Creatinine 0.6
Glucose 94
Calcium 8.4
Vital Signs:
Vital Signs
Temp Pulse Resp BP Pulse Ox
98.1 F 69 18 133/58 96
12/23/24 11:00 12/23/24 11:00 12/23/24 11:00 12/23/24 11:00 12/23/24 11:00
I&O
12/22/24 12/23/24 12/24/24
06:59 06:59 06:59
Intake Total 740 / 740 720 / 720
Balance 740 / 740 720 / 720
[2024-12-23] MEDS: MYCOSTATIN ORAL SUSPENSION PO (13:02)
--- NOTE | 2024-12-23 14:15 | W.DCSUMMARY ---
Discharge Summary
Discharge Data
Date of Admission: 12/20/24
Date of Discharge: 12/23/24
-
Pending Results: No
Hospital Course
89 YO F vision impairment d/t BEST dz (no longer driving- follows with [facility]) hx Temporal Arteritis 2021 (on prednisone taper down to 7 mg, follows with transformation analyst Dr Eric Calderon) Cholecystectomy Complete Hysterectomy GERD HLD p/w 1 week
coughing shortness of breath nausea vomiting decreased oral intake. Patient, who lives with daughter head of product, was prompted to come in for evaluation when she developed chest pain overnight since resolved. Flu positive. CXR noted no acute abn's.
Hypoxic on room air to 87%, patient required 2L nasal cannula supplementation to correct desaturation. Labs otherwise unremarkable. No fever or leukocytosis. Patient was started on Tamiflu. Patient hepatitis will improve. Patient was started
on bronchodilators. IV fluid was discontinued. Patient remained afebrile. No nausea no vomiting. No chest pain. Patient remained without any chest pain. Patient had intermittent coughing. No productive sputum. Patient was slowly able to be
weaned off the oxygen. Patient was stable on room air at rest and with exertion. Patient did not qualify for home oxygenation. Patient was stable on room air. Patient was eval by physical and Occupational Therapy with home health. Patient
was eager to get discharged.
Discharge Plan
-
Patient Disposition: Home with Home Care
Discharge Diagnosis/Procedures: Acute hypoxic respiratory insufficiency
Bronchitis likely secondary to influenza
nausea and vomiting
oral thrush
Condition: Fair
Diet: As tolerated
Activity: With assistance and As tolerated
Driving Restrictions: Not until seen by your Dr
Referrals:
Elfego Jones DO [Family Provider] - in less than 1 week
Prescriptions:
New
oseltamivir 30 mg Capsule
30 mg PO BID Qty: 5 0RF
nystatin 100,000 unit/mL Suspension
5 ml PO QID 7 Days Qty: 140 0RF
guaifenesin 600 mg Tablet Extended Release 12hr
600 mg PO Q12 Qty: 10 0RF
Continued
meclizine 12.5 mg Tablet
12.5 mg PO TIDPRN PRN (Reason: vertigo )
lovastatin 20 mg Tablet
20 mg PO DAILY
pantoprazole [Protonix] 40 mg tablet,delayed release (DR/EC)
40 mg PO DAILY Qty: 30 1RF
therapeutic multivitamin Tablet
1 tab PO DAILY
prednisone 1 mg Tablet
7 mg PO DAILY
Discharge Orders:
Discharge Patient (As Directed); Ordered 12/23/24
Ordered By: Rajat Mullins
Discharge Date and Time
Print Language: LATVIAN
[2024-12-23 15:16] VITALS: BP 155/74
== END 2024-12-23 16:28 | disposition home or self-care (01) | DRG 194 ==
LOC: 3 WEST ACU 13:57
PROVIDERS: ADMITTING PHYSICIAN Internal Medicine; ATTENDING PHYSICIAN Hospitalist; EMERGENCY PHYSICIAN Emergency Medicine; FAMILY PHYSICIAN Internal Medicine
DX: J10.1 Influenza due to other identified influenza virus with other respiratory manifestations (principal); B37.0 Candidal stomatitis; Z68.1 Body mass index [BMI] 19.9 or less, adult; R09.02 Hypoxemia; J40 Bronchitis, not specified as acute or chronic; R06.89 Other abnormalities of breathing; H54.7 Unspecified visual loss; M31.6 Other giant cell arteritis; K21.9 Gastro-esophageal reflux disease without esophagitis; E78.5 Hyperlipidemia, unspecified; Z90.49 Acquired absence of other specified parts of digestive tract; Z11.52 Encounter for screening for COVID-19; E86.0 Dehydration; K75.9 Inflammatory liver disease, unspecified; Z79.899 Other long term (current) drug therapy; R63.6 Underweight
CPT/HCPCS: 71046; 80048; 80053; 82805; 83605; 83735; 84484; 85025; 85027; 87040; 87502; 87807; 87811; 93005; 94640; 96361; 96374; 96375; 97116; 97163; 97166; 97530; 99285

== ENCOUNTER → 2025-04-22 11:24 | Outpatient (REF) | payer OTHER, SELFPAY | LOC: RAD 11:24 | PROVIDERS: ATTENDING PHYSICIAN Family Medicine | DX: G89.29 Other chronic pain (principal); M54.6 Pain in thoracic spine; M54.50 Low back pain, unspecified | CPT/HCPCS: 72072; 72110 ==

== ENCOUNTER → 2025-10-29 08:28 | Outpatient (REF) | payer OTHER, SELFPAY | LOC: RAD 08:28 | PROVIDERS: ATTENDING PHYSICIAN Family Medicine | DX: R63.4 Abnormal weight loss (principal); R63.39 Other feeding difficulties; R11.0 Nausea; K21.9 Gastro-esophageal reflux disease without esophagitis | CPT/HCPCS: 74177; Q9967 ==